=== PATIENT | male | born 1985 | race African-American/Black ===

== ENCOUNTER 2017-08-17 09:52 | Emergency (ER) | payer BC, MEDICAID ==
[~2017-08-17] VITALS: Ht 172.7 cm; Wt 65.0 kg
[2017-08-17] MEDS ORDERED: SODIUM CHLORIDE 0.9% 1,000 ML IV ONE (10:02)
[2017-08-17] MEDS ORDERED: ONDANSETRON HCL 4MG/2ML VIAL IV ONE (10:15)
[2017-08-17] MEDS ORDERED: MORPHINE SULFATE 10 MG/ML CPJ IV ONE (10:15)
[2017-08-17] MEDS ORDERED: ETOMIDATE 2MG/ML 10ML VIAL IV ONE (10:30)
[2017-08-17 12:42] VITALS: BP 123/78
== END 2017-08-17 12:43 | disposition home or self-care (01) ==
LOC: ER 10:30
DX: S43.004A Unspecified dislocation of right shoulder joint, initial encounter (principal); Z88.0 Allergy status to penicillin; X58.XXXA Exposure to other specified factors, initial encounter; Y93.89 Activity, other specified; Y92.89 Other specified places as the place of occurrence of the external cause; Y99.8 Other external cause status
CPT/HCPCS: 23650; 73030; 96374; 96375; 99152; 99285; J2270; J2405; J3490; J7030; Z7610; L3670

== ENCOUNTER 2021-08-18 09:39 | Emergency (ER) | payer MEDICAID ==
[~2021-08-18] VITALS: Ht 172.7 cm; Wt 88.0 kg
[2021-08-18 10:00] VITALS: BP 110/68
[2021-08-18] MEDS: KETOROLAC 60MG/2ML VIAL IM ONE ×2 (10:00→10:16)
== END 2021-08-18 11:54 | disposition home or self-care (01) ==
LOC: ER 09:39
DX: M25.511 Pain in right shoulder (principal)
CPT/HCPCS: 73030; 99283; J1885

== ENCOUNTER 2021-08-21 10:42 | Emergency (ER) | payer MEDICAID ==
[~2021-08-21] VITALS: Ht 172.7 cm; Wt 70.0 kg
[2021-08-21] MEDS ORDERED: CYCL10TA21 MT (12:28)
[2021-08-21] MEDS ORDERED: NAPR-1176 MT (12:28)
[2021-08-21] MEDS ORDERED: CYCLOBENZAPRINE 10MG TABLET PO ONE (12:30)
[2021-08-21] MEDS ORDERED: KETOROLAC 30MG/ML VIAL IM ONE (12:30)
[2021-08-21 13:11] VITALS: BP 110/60
== END 2021-08-21 13:13 | disposition home or self-care (01) ==
LOC: ER 10:42
DX: M25.511 Pain in right shoulder (principal); Z88.0 Allergy status to penicillin
CPT/HCPCS: 96372; 99283; J1885

== ENCOUNTER 2022-01-14 10:19 | Emergency (ER) | payer MEDICAID ==
[~2022-01-14] VITALS: Ht 172.7 cm; Wt 80.0 kg
[~2022-01-14 10:19] MED LIST: CYCL10TA21 MT; NAPR-1176 MT
[2022-01-14 10:32] VITALS: BP 114/81
[2022-01-14] MEDS ORDERED: ACET-2708 MT (11:30)
[2022-01-14] MEDS ORDERED: GUAI600T26 MT (11:30)
== END 2022-01-14 12:33 | disposition home or self-care (01) ==
LOC: ER 10:19
DX: B34.9 Viral infection, unspecified (principal)
CPT/HCPCS: 99282

== ENCOUNTER 2022-04-27 16:39 | Emergency (ER) | payer MEDICAID ==
[~2022-04-27] VITALS: Ht 172.7 cm; Wt 81.0 kg
[~2022-04-27 16:39] MED LIST changes: +ACET-2708 MT; +GUAI600T26 MT
[2022-04-27 16:50] VITALS: BP 113/55
== END 2022-04-27 19:15 | disposition home or self-care (01) ==
LOC: ER 16:39
DX: R51.9 Headache, unspecified (principal)
CPT/HCPCS: 99281

== ENCOUNTER 2022-05-29 07:58 | Emergency (ER) | payer MEDICAID ==
[~2022-05-29] VITALS: Ht 172.7 cm; Wt 68.0 kg
[2022-05-29] MEDS ORDERED: ONDANSETRON HCL 4MG/2ML INJ IV ONE (08:15)
[2022-05-29] MEDS ORDERED: PROPOFOL 200MG/20ML VIAL IV ONE (08:15)
[2022-05-29] MEDS ORDERED: MORPHINE SULFATE 4 MG/ML CPJ (NOT FOR IM USE) IV ONE (08:15)
[2022-05-29] MEDS ORDERED: IBUP-2029 MT (09:49)
[2022-05-29 10:15] VITALS: BP 111/71
== END 2022-05-29 12:48 | disposition home or self-care (01) ==
LOC: ER 07:58
DX: S43.014A Anterior dislocation of right humerus, initial encounter (principal); Z88.0 Allergy status to penicillin; W18.40XA Slipping, tripping and stumbling without falling, unspecified, initial encounter; Y93.89 Activity, other specified; Y92.89 Other specified places as the place of occurrence of the external cause; Y99.8 Other external cause status
CPT/HCPCS: 23650; 73030; 96374; 96375; 99152; 99285; J2270; J2405; J2704; Z7610; A4565

== ENCOUNTER 2022-07-22 07:50 | Emergency (ER) | payer MEDICAID ==
[~2022-07-22] VITALS: Ht 172.7 cm; Wt 70.5 kg
[~2022-07-22 07:50] MED LIST changes: +IBUP-2029 MT
[2022-07-22 08:18] LABS: BASOPHILS % 0.7 % (0.0-2.0); EOSINOPHILS % 1.3 % (0.0-5.0); HEMATOCRIT. 41.1 % (42.0-52.0); LYMPHOCYTES % 18.7 % (20.0-50.0); MEAN CORPUSCULAR HEMOGLOBIN 31.3 pg (28.0-32.0); MEAN PLATELET VOLUME 8.7 fl (7.4-10.4); MONOCYTES % 5.8 % (2.0-8.0); NEUTROPHILS % 73.5 % (40.0-76.0); PLATELET 253 x1000/uL (130-400); RED BLOOD CELL COUNT 4.47 mill/uL (4.7-6.1); RED CELL DISTRIBUTION WIDTH 13.2 % (11.6-14.6)
[2022-07-22 08:26] LABS: CHLORIDE 108 mEq/L (98-107)
[2022-07-22] MEDS ORDERED: ONDA4TAB11 PO (09:26)
[2022-07-22 09:27] LABS: CLARITY URINE CLEAR (CLEAR); COLOR URINE YELLOW (YELLOW); KETONES URINE NEGATIVE (NEGATIVE); LEUKOCYTE ESTERASE URINE NEGATIVE (NEGATIVE); NITRITE URINE NEGATIVE (NEGATIVE); OCCULT BLOOD URINE NEGATIVE (NEGATIVE); PH URINE 6.5 (4.5-8.0); PROTEIN URINE NEGATIVE (NEGATIVE); SPECIFIC GRAVITY URINE 1.014 (1.005-1.030)
[2022-07-22 09:40] VITALS: BP 134/68
== END 2022-07-22 09:41 | disposition home or self-care (01) ==
LOC: ER 07:50
DX: A08.4 Viral intestinal infection, unspecified (principal); Z88.0 Allergy status to penicillin
CPT/HCPCS: 36415; 80053; 81003; 85025; 93005; 99284

== ENCOUNTER 2022-07-26 15:47 | Emergency (ER) | payer MEDICAID ==
[~2022-07-26] VITALS: Ht 175.3 cm; Wt 70.0 kg
[~2022-07-26 15:47] MED LIST changes: +ONDA4TAB11 PO
[2022-07-26 16:34] LABS: EOSINOPHILS % 1.9 % (0.0-5.0); HEMATOCRIT. 41.4 % (42.0-52.0); HEMOGLOBIN. 14.1 g/dL (14.0-18.0); LYMPHOCYTES % 32.7 % (20.0-50.0); MEAN CORPUSCULAR HEMOGLOBIN 31.5 pg (28.0-32.0); MEAN CORPUSCULAR VOLUME 92.6 fL (80.0-94.0); MEAN PLATELET VOLUME 8.6 fl (7.4-10.4); MONOCYTES % 5.6 % (2.0-8.0); NEUTROPHILS % 58.8 % (40.0-76.0); PLATELET 249 x1000/uL (130-400); RED BLOOD CELL COUNT 4.47 mill/uL (4.7-6.1); RED CELL DISTRIBUTION WIDTH 13.1 % (11.6-14.6)
[2022-07-26 16:38] LABS: CHLORIDE 110 mEq/L (98-107)
[2022-07-26 19:40] LABS: BG CARBOXYHEMOGLOBIN 2.9 % (0.5-1.5); BG DEOXYHEMOGLOBIN 3.3 % (0.0-5.0); BG FRACTION INSPIRED OXYGEN 21; BG HCO3 ACT 27.1 mmol/L (22.0-26.0); BG METHEMOGLOBIN 0.4 % (0.0-1.5); BG OXYGEN SATURATION 96.6 % (92.0-98.5); BG OXYHEMOGLOBIN 93.4 % (94.0-97.0); BG PCO2 44.1 mmHg (35.0-45.0); BG PH 7.407 (7.350-7.450); BG PO2 84.4 mmHg (75.0-100.0); BG SAMPLE SITE RIGHT RADIAL; BG TOTAL HEMOGLOBIN 14.2 g/dL (12.0-18.0); BG VENT MODE ROOM AIR
[2022-07-26 21:15] LABS: CLARITY URINE CLEAR (CLEAR); COLOR URINE YELLOW (YELLOW); KETONES URINE TRACE (NEGATIVE); LEUKOCYTE ESTERASE URINE 1+ (NEGATIVE); NITRITE URINE NEGATIVE (NEGATIVE); OCCULT BLOOD URINE NEGATIVE (NEGATIVE); PH URINE 6.5 (4.5-8.0); PROTEIN URINE NEGATIVE (NEGATIVE)
[2022-07-26 22:53] VITALS: BP 120/70
== END 2022-07-26 22:54 | disposition home or self-care (01) ==
LOC: ER 15:47
DX: R51.9 Headache, unspecified (principal); R06.02 Shortness of breath; R07.89 Other chest pain; Z88.1 Allergy status to other antibiotic agents; Z88.0 Allergy status to penicillin
CPT/HCPCS: 36415; 36600; 71045; 80053; 81003; 82375; 82805; 84484; 85025; 93005; 99285

== ENCOUNTER 2022-09-15 21:30 | Emergency (ER) | payer MEDICAID ==
[~2022-09-15] VITALS: Ht 172.7 cm; Wt 64.6 kg
[2022-09-15 21:52] VITALS: BP 107/63; O2SAT 99
[2022-09-15 23:24] LABS: CLARITY URINE CLEAR (CLEAR); COLOR URINE YELLOW (YELLOW); KETONES URINE NEGATIVE (NEGATIVE); LEUKOCYTE ESTERASE URINE NEGATIVE (NEGATIVE); NITRITE URINE NEGATIVE (NEGATIVE); OCCULT BLOOD URINE NEGATIVE (NEGATIVE); PROTEIN URINE NEGATIVE (NEGATIVE); SPECIFIC GRAVITY URINE 1.023 (1.005-1.030)
[2022-09-15 23:38] LABS: CHLORIDE 107 mEq/L (98-107)
[2022-09-15 23:46] LABS: CREATINE KINASE 376 IU/L (39-308)
[2022-09-15 23:47] LABS: BASOPHILS % 1.3 % (0.0-2.0); EOSINOPHILS % 2.8 % (0.0-5.0); HEMATOCRIT. 41.4 % (42.0-52.0); HEMOGLOBIN. 14.1 g/dL (14.0-18.0); LYMPHOCYTES % 43.5 % (20.0-50.0); MEAN CORPUSCULAR VOLUME 91.3 fL (80.0-94.0); MEAN PLATELET VOLUME 9.1 fl (7.4-10.4); MONOCYTES % 7.8 % (2.0-8.0); NEUTROPHILS % 44.6 % (40.0-76.0); PLATELET 254 x1000/uL (130-400); RED BLOOD CELL COUNT 4.54 mill/uL (4.7-6.1); RED CELL DISTRIBUTION WIDTH 13.2 % (11.6-14.6)
[2022-09-16 00:40] VITALS: PULSE 73; RESP 16; TEMP 98.3
== END 2022-09-16 00:40 | disposition home or self-care (01) ==
LOC: ER 21:30
DX: R11.2 Nausea with vomiting, unspecified (principal); Z88.0 Allergy status to penicillin; Z20.822 Contact with and (suspected) exposure to COVID-19
CPT/HCPCS: 99283; 87426; 80053; 81003; 82550; 85025; 87804 ×2; 36415; C9803

== ENCOUNTER 2022-09-24 05:48 | Emergency (ER) | payer MEDICAID ==
[~2022-09-24] VITALS: Ht 175.3 cm; Wt 68.0 kg
[2022-09-24 05:54] VITALS: O2SAT 98
[2022-09-24] MEDS ORDERED: OXYCODONE HCL/ACETAMINOPHEN 5/325MG TABLET PO ONE (07:15)
[2022-09-24] MEDS ORDERED: IBUP-2028 PO (08:22)
[2022-09-24] MEDS ORDERED: T3 PO (08:22)
[2022-09-24 08:45] VITALS: BP 112/78; PULSE 88; RESP 18; TEMP 98.7
== END 2022-09-24 08:47 | disposition home or self-care (01) ==
LOC: ER 05:48
DX: M54.50 Low back pain, unspecified (principal); Z88.0 Allergy status to penicillin
CPT/HCPCS: 72100; 99283

== ENCOUNTER 2022-09-30 11:10 | Emergency (ER) | payer MEDICAID ==
[~2022-09-30] VITALS: Ht 175.3 cm; Wt 73.0 kg
[~2022-09-30 11:10] MED LIST changes: +IBUP-2028 PO; +T3 PO
[2022-09-30 11:21] VITALS: BP 95/72; PULSE 78; RESP 18; TEMP 98.3; O2SAT 100
[2022-09-30] MEDS ORDERED: METH-653 MT (12:59)
[2022-09-30] MEDS ORDERED: IBUPROFEN 600MG TABLET PO ONE (13:00)
== END 2022-09-30 12:35 | disposition home or self-care (01) ==
LOC: ER 12:26
DX: M54.50 Low back pain, unspecified (principal); Z88.1 Allergy status to other antibiotic agents; Z88.0 Allergy status to penicillin
CPT/HCPCS: 99283

== ENCOUNTER 2022-10-23 20:05 | Emergency (ER) | payer MEDICAID ==
[~2022-10-23] VITALS: Ht 175.3 cm; Wt 66.0 kg
[~2022-10-23 20:05] MED LIST changes: +METH-653 MT
[2022-10-23 20:34] VITALS: BP 104/63; PULSE 77; RESP 14; TEMP 98; O2SAT 99
[2022-10-23 21:29] LABS: BASOPHILS % 0.9 % (0.0-2.0); EOSINOPHILS % 2.8 % (0.0-5.0); HEMATOCRIT. 41.2 % (42.0-52.0); MEAN CORPUSCULAR HEMOGLOBIN 31.2 pg (28.0-32.0); MEAN CORPUSCULAR VOLUME 91.7 fL (80.0-94.0); MEAN PLATELET VOLUME 8.8 fl (7.4-10.4); MONOCYTES % 9.5 % (2.0-8.0); NEUTROPHILS % 45.8 % (40.0-76.0); PLATELET 226 x1000/uL (130-400); RED CELL DISTRIBUTION WIDTH 13.4 % (11.6-14.6); WHITE BLOOD COUNT 8.3 x1000/uL (4.5-11.0)
[2022-10-23 21:34] LABS: CHLORIDE 106 mEq/L (98-107); INDEX HEMOLYSI 1 (1-3); INDEX ICTERIC 1 (1-4); INDEX LIPEMIC 1 (1-3); SODIUM 138 mEq/L (136-145)
[2022-10-23 21:44] LABS: ALANINE AMINOTRANSFERASE 23 IU/L (13-61); ALBUMIN 3.8 g/dL (3.4-5.0); ASPARTATE AMINOTRANSFERASE 13 IU/L (15-37); BILIRUBIN TOTAL 0.2 mg/dL (0.1-1.0); CALCIUM 8.4 mg/dL (8.5-10.1); CARBON DIOXIDE 29 mEq/L (21-32); CREATINE KINASE 139 IU/L (39-308); CREATININE 0.9 mg/dL (0.6-1.3); GLUCOSE 96 mg/dL (70-105); PROTEIN TOTAL 7.7 g/dL (6.0-8.3); UREA NITROGEN BLOOD 12 mg/dL (7-21)
[2022-10-23 22:04] LABS: CLARITY URINE CLEAR (CLEAR); COLOR URINE YELLOW (YELLOW); GLUCOSE URINE NEGATIVE (NEGATIVE); KETONES URINE NEGATIVE (NEGATIVE); LEUKOCYTE ESTERASE URINE NEGATIVE (NEGATIVE); NITRITE URINE NEGATIVE (NEGATIVE); OCCULT BLOOD URINE NEGATIVE (NEGATIVE); PH URINE 6.5 (4.5-8.0); PROTEIN URINE NEGATIVE (NEGATIVE); SPECIFIC GRAVITY URINE 1.021 (1.005-1.030); UROBILINOGEN URINE 0.2 E.U./dL (0.2-1.0)
[2022-10-23] MEDS ORDERED: ACET-2708 PO (23:09)
== END 2022-10-23 23:51 | disposition home or self-care (01) ==
LOC: ER 20:05
DX: R42 Dizziness and giddiness (principal); M79.10 Myalgia, unspecified site
CPT/HCPCS: 36415; 71045; 80053; 81003; 82550; 85025; 99285

== ENCOUNTER 2022-10-30 22:42 | Emergency (ER) | payer MEDICAID ==
[~2022-10-30] VITALS: Ht 175.3 cm; Wt 68.3 kg
[~2022-10-30 22:42] MED LIST changes: +ACET-2708 PO
[2022-10-30 23:16] VITALS: BP 97/66; O2SAT 100
[2022-10-31] MEDS ORDERED: CYCL10TA21 PO (01:01)
[2022-10-31 01:16] VITALS: PULSE 79; RESP 14; TEMP 98.5
== END 2022-10-31 01:18 | disposition home or self-care (01) ==
LOC: ER 22:42
DX: M54.50 Low back pain, unspecified (principal); Z88.0 Allergy status to penicillin; Z88.1 Allergy status to other antibiotic agents; Z79.899 Other long term (current) drug therapy
CPT/HCPCS: 99283

== ENCOUNTER 2022-11-03 21:19 | Emergency (ER) | payer MEDICAID ==
[~2022-11-03] VITALS: Ht 175.3 cm; Wt 66.2 kg
[~2022-11-03 21:19] MED LIST changes: +CYCL10TA21 PO
[2022-11-03 21:40] VITALS: TEMP 98.7; O2SAT 100
[2022-11-04] MEDS ORDERED: NAPR-679 MT (01:40)
[2022-11-04] MEDS ORDERED: CYCL5TAB MT (01:40)
[2022-11-04] MEDS ORDERED: LIDO700A15 TP (01:40)
[2022-11-04 01:57] VITALS: BP 104/66; PULSE 64; RESP 17
== END 2022-11-04 01:58 | disposition home or self-care (01) ==
LOC: ER 21:19
DX: M54.50 Low back pain, unspecified (principal); F19.90 Other psychoactive substance use, unspecified, uncomplicated; Z88.0 Allergy status to penicillin; Z88.8 Allergy status to other drugs, medicaments and biological substances; Z79.899 Other long term (current) drug therapy
CPT/HCPCS: 99283

== ENCOUNTER 2022-11-14 08:12 | Emergency (ER) | payer MEDICAID ==
[~2022-11-14] VITALS: Ht 172.7 cm; Wt 74.0 kg
[~2022-11-14 08:12] MED LIST changes: +CYCL5TAB MT; +LIDO700A15 TP; +NAPR-679 MT
[2022-11-14 08:14] VITALS: O2SAT 99
[2022-11-14] MEDS ORDERED: IBUPROFEN 800MG TABLET PO ONE (09:15)
[2022-11-14] MEDS ORDERED: ACETAMINOPHEN 325MG TABLET PO ONE (09:15)
[2022-11-14] MEDS ORDERED: ACET-2708 PO (11:08)
[2022-11-14] MEDS ORDERED: IBUP-2029 MT (11:08)
[2022-11-14 11:33] VITALS: BP 131/85; PULSE 64; RESP 20; TEMP 98.3
== END 2022-11-14 11:34 | disposition home or self-care (01) ==
LOC: ER 08:41
DX: M54.50 Low back pain, unspecified (principal); Z88.0 Allergy status to penicillin; Z79.899 Other long term (current) drug therapy
CPT/HCPCS: 99282

== ENCOUNTER 2022-12-17 10:31 | Emergency (ER) | payer MEDICAID ==
[~2022-12-17] VITALS: Ht 177.8 cm; Wt 72.0 kg
[2022-12-17 10:55] VITALS: O2SAT 97
[2022-12-17] MEDS ORDERED: CYCLOBENZAPRINE 10MG TABLET PO STA (11:07)
[2022-12-17] MEDS ORDERED: KETOROLAC 30MG/ML VIAL IM ONE (11:15)
[2022-12-17] MEDS ORDERED: NAPR-681 MT (12:00)
[2022-12-17] MEDS ORDERED: CYCL5TAB MT (12:00)
[2022-12-17] MEDS ORDERED: LIDO700A15 TP (12:00)
[2022-12-17 13:04] VITALS: BP 124/81; PULSE 79; RESP 19; TEMP 98.2
== END 2022-12-17 13:05 | disposition home or self-care (01) ==
LOC: ER 10:31
DX: S83.411A Sprain of medial collateral ligament of right knee, initial encounter (principal); Z88.0 Allergy status to penicillin; Z79.899 Other long term (current) drug therapy; X58.XXXA Exposure to other specified factors, initial encounter; Y93.01 Activity, walking, marching and hiking; Y92.89 Other specified places as the place of occurrence of the external cause; Y99.8 Other external cause status
CPT/HCPCS: 99283; 73560; 96372; J1885

== ENCOUNTER 2023-04-01 11:38 | Emergency (ER) | payer MEDICAID ==
[~2023-04-01] VITALS: Ht 177.8 cm; Wt 75.0 kg
[~2023-04-01 11:38] MED LIST changes: +NAPR-681 MT
[2023-04-01] MEDS: MORPHINE SULFATE 4 MG/ML CPJ (NOT FOR IM USE) IV ONE (11:56)
[2023-04-01] MEDS: ONDANSETRON HCL 4MG/2ML INJ IV ONE (11:56)
[2023-04-01] MEDS: KETAMINE HCL 50 MG/ML 10ML IV ONE (12:30)
[2023-04-01 12:31] VITALS: O2SAT 100
[2023-04-01] MEDS: PROPOFOL 200MG/20ML VIAL IV ONE (12:31)
[2023-04-01 14:16] VITALS: BP 115/59; PULSE 60; RESP 17; TEMP 98.3
== END 2023-04-01 14:38 | disposition home or self-care (01) ==
LOC: ER 11:38
DX: S43.004A Unspecified dislocation of right shoulder joint, initial encounter (principal); Z88.0 Allergy status to penicillin; Z79.899 Other long term (current) drug therapy; Y93.67 Activity, basketball; Y92.89 Other specified places as the place of occurrence of the external cause; Y99.8 Other external cause status
CPT/HCPCS: 73030; 93005; 23650; 96374; 96375; 99152; 99285; J3490; J2405; J2704; J2270; Z7610 ×4